=== PATIENT | female | born 1985 | race Caucasian/White ===

== ENCOUNTER 2023-10-18 11:11 | Outpatient (CLI) | payer BC ==
[2023-10-19 05:13] LABS: RPR Non Reactive (Non Reactive)
[2023-10-19 07:10] LABS: HBsAG SCREEN Negative (Negative); HCV AB Non Reactive (Non Reactive); HEPATITIS B SURFACE AB QUANT <3.1 mIU/mL (Immunity>9.9); HIV SCREEN 4TH GENERATION Non Reactive (Non Reactive)
[2023-10-19 09:09] LABS: VARICELLA-ZOSTER AB IGG 1478 index (Immune >165)
== END 2023-10-18 11:12 | disposition home or self-care (01) ==
LOC: LAB 11:11
PROVIDERS: ATTEND Nurse Practitioner Obstetrics & Gynecology
DX: Z31.69 Encounter for other general counseling and advice on procreation (principal)
CPT/HCPCS: 36415; 86317; 86592; 86762; 86787; 86803; 87340; 87389; 87491; 87591; 87661

== ENCOUNTER 2023-11-21 07:21 | Outpatient (CLI) | payer BC | END 2023-11-21 07:22 | disposition home or self-care (01) | LOC: LAB 07:21 | PROVIDERS: ATTEND Advanced Practice Midwife | DX: O36.80X0 Pregnancy with inconclusive fetal viability, not applicable or unspecified (principal) | CPT/HCPCS: 36415; 84702; 86900; 86901 ==

== ENCOUNTER 2023-11-23 10:01 | Outpatient (CLI) | payer BC | END 2023-11-23 10:02 | disposition home or self-care (01) | LOC: LAB 10:01 | PROVIDERS: ATTEND Advanced Practice Midwife | DX: O36.80X0 Pregnancy with inconclusive fetal viability, not applicable or unspecified (principal) | CPT/HCPCS: 36415; 84702 ==

== ENCOUNTER 2023-11-27 13:04 | Outpatient (CLI) | payer BC | END 2023-11-27 13:05 | disposition home or self-care (01) | LOC: LAB 13:04 | PROVIDERS: ATTEND Nurse Practitioner Obstetrics & Gynecology | DX: O36.80X0 Pregnancy with inconclusive fetal viability, not applicable or unspecified (principal) | CPT/HCPCS: 36415; 84702 ==

== ENCOUNTER 2024-03-13 11:39 | Outpatient (CLI) | payer BC | END 2024-03-13 11:40 | disposition home or self-care (01) | LOC: LAB 11:39 | PROVIDERS: ATTEND Nurse Practitioner Obstetrics & Gynecology | DX: Z31.69 Encounter for other general counseling and advice on procreation (principal) | CPT/HCPCS: 36415; 82166 ==

== ENCOUNTER 2025-04-06 21:50 | Inpatient (IN) ==
[2025-04-06] MEDS ORDERED: TERBUTALINE 1 MG/ML VIAL SUBQ PRN (21:59)
[2025-04-06] MEDS ORDERED: LABETALOL 20 MG/4 ML SYRINGE IVP PRN ×3 (21:59)
[2025-04-06] MEDS ORDERED: CARBOPROST TROMETHAMINE 250 MCG/ML VIAL IM PRN (21:59)
[2025-04-06] MEDS ORDERED: fentaNYL 100 MCG/2 ML VIAL IVP PRN (21:59)
[2025-04-06] MEDS ORDERED: METHYLERGONOVINE 0.2 MG/ML VIAL IM PRN (21:59)
[2025-04-06] MEDS ORDERED: OXYTOCIN 10 UNIT/ML VIAL IM PRN (21:59)
[2025-04-06] MEDS ORDERED: hydrALAZINE INJ 20 MG/ML VIAL IVP PRN (21:59)
[2025-04-06] MEDS ORDERED: OXYTOCIN/SODIUM CHLORIDE 500 ML IV PRN (21:59)
--- NOTE | 2025-04-06 23:50 | HISTORY & PHYSICAL EXAMINATION ---
Admit History Smoking Status: Never smoker HPI Current : Vital Signs Pulse Rate 90 04/06/25 22:18 Respiratory Rate 17 04/06/25 22:18 Blood Pressure 118/72 04/06/25 22:18 Meds/Allgy Home Medications Ambulatory Orders Medication Instructions Recorded Confirmed metoclopramide HCl 5 mg tablet 5 mg PO Q6H PRN nausea and 08/31/24 04/05/25 (Reglan) vomiting #30 tabs ondansetron 4 mg disintegrating 4 mg PO Q6H PRN nausea and 09/14/24 04/05/25 tablet vomiting #120 tabs promethazine 25 mg tablet 25 mg PO TID PRN nausea and 09/14/24 04/05/25 vomiting #10 tabs Allergies Allergies Allergy/AdvReac Type Severity Reaction Status Date / Time No Known Drug Allergies Allergy Verified 04/05/25 12:58 PFSH Active Problems All Active Problems (Updated 03/22/25 @ 16:52 by Cathryn Wilson [facility]) Iron deficiency anemia during (Acute) Supervision of elderly multigravida, unspecified trimester (Acute) Advanced maternal age during (Acute) Normal in multigravida in first trimester (Acute) Family History Family History (Updated 08/27/24 @ 12:09 by Anila Flood MA) Grandfather Diabetes Father High blood pressure Social History Social History Smoking Status: Never smoker Do you dip or chew tobacco?: No Patient requests smoking cessation consult: No Initiate information on smoking cessation: No Physical Abdominal Exam Vital Signs: Pulse Resp BP 90 17 118/72 04/06/25 22:18 04/06/25 22:18 04/06/25 22:18 Plan for Labor Plan For Labor I expect patient to be DC'd or transferred within 96 hours.: Yes Plan for Labor: Domi is a 39yo @ 39.0wks gestation who presents to [facility] for induction of labor at term gestation. Upon arrival cervical exam was deferred. She presented earlier this morning with concerns for vaginal leakage of clear fluid however thorough examination including ROM+ was negative. FHR Category I pattern at present. 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 She transferred back to [facility] at 35wks gestation. Her has remained uncomplicated with the exception of advanced maternal age. Her NIPT was negative. She will be admitted to [facility] for pre-induction cervical ripening. Her is hoping to be present for delivery however he deploys this evening at 2300. She is really hoping he will be able to briefly see the baby prior to his departure. 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 Family Hx:No family hx of chromosomal or genetic abnormalities; Alzheimer disease - PGF, MGF; Depression - Mother; Diabetes - Sister, MGF; Colon cancer - MGM; HTN - Father Allergies: NKDA Medications: PNV, Reglan LMP:07/08/2024 LIONEL by LMP: 04/14/2025 U/S: @ 6+2 weeks, LIONEL 04/20/2025 Final LIONEL: 04/14/2025 Pre- weight: 142 BMI: 28.6 Blood type: O NEGATIVE RHOGAM @ 28 WEEKSgiven 01/20/25 Antibody screen:negative CBC: PLT HCT HGB 11.8/34.4/291 (10/28/2024) Rubella:Immune VZV:immune HBsAg:NR HepC:NR RPR/AB-EIA:NR HIV:NR Flu: COVID: PAP:12/03/2024 NILM HPV- GC/CT: 09/10/2024- negative HSV: Negative Genetic Testing: FAS:11/23/2024 19+6 Placenta: right lateral and w/o previa Cord: 3VC CLAUDIA:wnl EFW: 314g, 50th%ile 50gm GCT:112 TDAP:01/20/25 Breast Pump:done 2nd antibody screen: 3rd trimester H/H PLT 10.8/32.5/250 (03/09/2025) 3rd trimester RPR RSV: received in [place] GBS:negative Physical exam: Normocephalic, atraumatic Heart RRR w/o M/G/R Lungs CTAB Abdomen gravid, soft, nontender EFW 3400g FHR baseline 140s, moderate variability, + accels, no decels Contractions palpate mild every 4-7 minutes with soft resting tone SVE deferred (this morning /-2, vertex with intact membranes Bilateral LE's trace edema Mood is good Assessment: 39yo @ 39.0wks gestation by LMP c/w 6wk U/S Advanced maternal age FHR Category I GBS negative Plan: Admit to [facility] for elective induction of labor at term gestation. Pre-induction cervical ripening with misoprostol 50mcg BC q 4hrs x 2 doses. Repeat SVE in 8hrs or sooner PRN. Considering initiation of pitocin following 2 doses of misoprostol. Continuous monitoring. Jacuzzi PRN. Nitrous oxide PRN. Epidural per maternal request. Anticipate
[2025-04-07] MEDS: SODIUM CHLORIDE FLUSH 0.9% 10 ML SYRINGE IVP PRN (00:01)
[2025-04-07] MEDS: SODIUM CHLORIDE FLUSH 0.9% 10 ML SYRINGE IVP SCH (00:01)
[2025-04-07 00:10] LABS: HCT - HEMATOCRIT 32.9 % (37.0-47.0); HGB - HEMOGLOBIN 10.3 g/dL (12.0-16.0); MEAN PLATELET VOLUME 10.5 fL (7.9-10.8); NRBC ABSOLUTE COUNT (AUTO) 0.00 x10^3/uL; NUCLEATED RED BLOOD CELLS AUTO 0.0 /100WBC; PLT - PLATELET COUNT 261 10^3/uL (130-450); RED CELL DISTRIBUTION WIDTH 15.1 % (12.0-15.0)
--- OUTSIDE RECORDS SUMMARY | 2025-04-07 00:10 | EXTERNAL MEDICAL SUMMARY RPT | Continuity of Care Document ---
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 (no reactio n) (no severity) Problems date description facility 2025-02-05 11:12 Encounter for superv ision of other normal , [facility] 2025-02-05 11:13 Encounter for superv ision of other normal , first trimester [facility] 2025-02-05 11:23 Encounter for superv ision of other normal , first trimester [facility] 2025-02-22 00:00 Supervision of other normal pre gnancy, antepartum [facility] 2025-03-24 16:03 Encounter for superv ision of other normal , first trimester [facility] 2025-03-24 16:04 Encounter for superv ision of other normal , first trimester [email or web address] 2025-03-30 07:43 Iron deficiency anemia, unspeci fied [facility] 2025-03-30 07:43 Anemia complicating , third trimester [facility] 2025-03-30 07:43 Anemia complicating , unspecified trimester [email or web address] 2025-03-30 07:43 35 weeks gestation [email or web address] 2025-04-01 10:35 Supervision of elderly multigra marti, third trimester [facility] Results/Labs test date facility value unit notes Result panel 1 Specimen collection (procedure) (no date) [facility] (missing) (missing) (missing) Result panel 2 Specimen collection (procedure) (no date) [facility] (missing) (missing) (missing) Result panel 3 RUPTURE OF MEMBRANES PLUS 2025-04-02 18:10 [facility] NEGATIVE (missing) (missing) Social History date description facility 2025-02-22 00:00 Never smoked tobacco (finding) [facility]
[2025-04-07 00:12] LABS: ALT ALANINE AMINOTRANSFERASE 9.0 IU/L (10-60); AST ASPARTATE AMINOTRANSFERASE 15.0 IU/L (10-42); BUN - BLOOD UREA NITROGEN 8.0 mg/dL (6-20); CARBON DIOXIDE - CO2 20.0 mmol/L (21-32); CREATININE 0.5 mg/dL (0.6-1.3); GFR - MDRD 138.0 (>89)
--- NOTE | 2025-04-07 10:48 | PROVIDER PROGRESS NOTE ---
Labor Progress Note Labor Progress Note Labor Progress Note/Additional Text: S: Walking the halls this morning in attempt to keep contractions going. She states she feels the contractions are gradually increasing in intensity. She is coping well. is supportive at the bedside. O: FHR baseline 150s, moderate variability, + accels, no decels Contractions palpate mild every 2-4 minutes with soft resting tone SVE 2/50/-3, posterior, vertex. S/p 2 doses 50mcg BC misoprostol A: 39yo @ 39.0wks gestation Early labor FHR Category I GBS negative P: Initiate pitocin for induction of labor with titration per protocol. Repeat SVE in 4 hours or sooner PRN. Consider cervical ripening balloon placement if minimal change at next SVE. Continuous monitoring. Jacuzzi PRN. Nitrous oxide PRN. Epidural per maternal request. Anticipate .
[2025-04-07] MEDS: OXYTOCIN/SODIUM CHLORIDE 500 ML IV SCH (11:00)
[2025-04-07] MEDS: LACTATED RINGERS 1,000 ML IV PRN (11:00)
--- NOTE | 2025-04-07 14:37 | PROVIDER PROGRESS NOTE ---
Labor Progress Note Labor Progress Note Labor Progress Note/Additional Text: S: Breathing through contractions. She is rating them 5/10 on a pain scale. When she sat up to go to the bathroom she noticed liquid running down her leg which she thought was amniotic fluid however when she looked more closely she noted denis blood and became alarmed. Feels better after our discussion and reassurance that her bleeding and well being is being closely monitored. supportive at the bedside. O: FHR baseline 150s, moderate variability, + accels, + decels Contractions palpate moderate every 2-4 minutes with soft resting tone SVE 4/60/-2, posterior. Vertex. AROM occurred at 1415 and was noted to be a small amount of clear fluid FAS reviewed and verified placenta right lateral without previa A: 39yo @ 39.0wks gestation Vaginal bleeding during labor Early labor FHR Category I GBS negative P: Type and crossmatched x 2 units on hold. Reviewed bleeding during labor with client integration manager physician. Continuous monitoring. Restart pitocin 30 min after AROM if contractions decrease in frequency and t itrate per protocol. Repeat SVE 2 hours after initiation of pitocin. Jacuzzi PRN. Nitrous oxide PRN. Epidural per maternal request. Anticipate .
[2025-04-07] MEDS: LACTATED RINGERS 500 ML IV ONE (15:01)
[2025-04-07] MEDS ORDERED: ROPIVACAINE 0.2% 200 MG/100 ML BAG EP ONE (16:19)
[2025-04-07] MEDS ORDERED: ONDANSETRON 4 MG/2 ML VIAL IVP PRN (16:56)
[2025-04-07] MEDS ORDERED: METOCLOPRAMIDE 10 MG/2 ML VIAL IVP PRN (16:56)
[2025-04-07] MEDS ORDERED: NALBUPHINE 10 MG/ML AMP IVP PRN (16:56)
[2025-04-07] MEDS ORDERED: ROPIVACAINE 0.2% 200 MG/100 ML BAG EP PRN (16:56)
[2025-04-07] MEDS ORDERED: NALOXONE 0.4 MG/ML VIAL IVP PRN (16:56)
[2025-04-07] MEDS ORDERED: ePHEDrine 50 MG/ML VIAL IVP PRN (16:56)
--- NOTE | 2025-04-07 16:59 | ANESTHESIA PROCEDURE NOTE ---
Pre-Anesthesia VS, & Labs Diagnosis Surgical Diagnosis:: labor induction Procedure Procedure: epidural Vitals Vital Signs: Pulse Resp BP 90 17 118/72 04/06/25 22:18 04/06/25 22:18 04/06/25 22:18 NPO NPO: Other Is Patient ?: Yes Lab Results Current Lab Results: Laboratory Tests 04/06/25 23:15: WBC 8.5, RBC 3.86 L, Hgb 10.3 L, Hct 32.9 L, MCV 85.2, MCH 26.7 L, MCHC 31.3 L, RDW 15.1 H, Plt Count 261, MPV 10.5, Neut # (Auto) 5.5, Lymph # (Auto) 1.9, [place] # (Auto) 0.9, Eos # (Auto) 0.1, Baso # (Auto) 0.0, Absolute Nucleated RBC 0.00, Nucleated RBC % 0.0, Sodium 135, Potassium 3.4 L, Chloride 106, Carbon Dioxide 20 L, Anion Gap 9.0, BUN 8, Creatinine 0.5 L, Estimated GFR (MDRD) 138, Glucose 95, Calcium 9.3, Total Bilirubin 0.4, AST 15, ALT 9 L, Alkaline Phosphatase 109, Total Protein 6.2 L, Albumin 3.5, Globulin 2.7, Albumin/Globulin Ratio 1.3, Blood Type O NEGATIVE, Antibody Screen NEGATIVE, Crossmatch IS Only See Detail 04/06/25 23:15 04/06/25 23:15 Meds/Allgy Home Medications Ambulatory Orders Medication Instructions Recorded Confirmed metoclopramide HCl 5 mg tablet 5 mg PO Q6H PRN nausea and 08/31/24 04/05/25 (Reglan) vomiting #30 tabs ondansetron 4 mg disintegrating 4 mg PO Q6H PRN nausea and 09/14/24 04/05/25 tablet vomiting #120 tabs promethazine 25 mg tablet 25 mg PO TID PRN nausea and 09/14/24 04/05/25 vomiting #10 tabs Allergies Allergies Allergy/AdvReac Type Severity Reaction Status Date / Time No Known Drug Allergies Allergy Verified 04/07/25 09:17 PFSH Active Problems All Active Problems (Updated 03/22/25 @ 16:52 by Cathryn Wilson DO ALL OPERATOR) Iron deficiency anemia during (Acute) Supervision of elderly multigravida, unspecified trimester (Acute) Advanced maternal age during (Acute) Normal in multigravida in first trimester (Acute) Family History Family History (Updated 08/27/24 @ 12:09 by Anila Flood MA) Grandfather Diabetes Father High blood pressure Social History Social History Smoking Status: Never smoker Do you dip or chew tobacco?: No Patient requests smoking cessation consult: No Initiate information on smoking cessation: No Anesthesia Exam (Expanded) Exam General: Alert, Oriented x3, Cooperative and Moderate distress Dental: WNL Mouth Opening: Greater than 4 Fingerbreadths Neck Mobility: Normal Mallampati classification: II Thyromental Distance: greater than 6 cm Respiratory: Lungs clear Cardiovascular: Regular rate Plan Plan Anesthesia Type: Epidural Consent for Procedure(s) Verified and Reviewed: Yes Code Status: Attempt Resuscitation ASA Classification ASA classification: 2-Mild systemic disease Is this case an emergency?: No
[2025-04-07] MEDS ORDERED: SIMETHICONE CHEW 80 MG TABLET PO PRN (17:53)
[2025-04-07] MEDS ORDERED: WITCH HAZEL/GLYCERIN 1 PAD TOP PRN (17:53)
[2025-04-07] MEDS ORDERED: HYDROCORTISONE 1% CREAM 28 GM TUBE TOP PRN (17:53)
[2025-04-07] MEDS ORDERED: OXYTOCIN/SODIUM CHLORIDE 500 ML IV PRN (17:53)
--- NOTE | 2025-04-07 18:00 | DELIVERY NOTE ---
Delivery Note Delivery Outcome Delivery Date: 04/07/25 Delivery Comments (Free Text/Narrative) Delivery Comments (Free Text/Narrative): Labor: This 39yo @ 39.0 wks gestation by LMP c/w 6.2wks U/S presented to [facility] for induction of labor at term gestation. Cervix was 2/50/-3 and vertex with intact membranes. She received 2 doses of 50mcg BC misoprostol for pre- induction cervical ripening. Pitocin was initiated for induction of labor with a maximum infusion rate of 4mU/min. FHR demonstrated Category I pattern throughout labor. Normal labor course. AROM occurred @ 1415 and was noted to be a moderate amount of clear fluid. Epidural placed per maternal request. She progressed to c/c/+1 at 1731. : Normal SVB of viable female infant on 04/07/2025 @ 1734. Nucal cord x 2 was reduced. The was placed on maternal abdomen, stimulated, dried, and placed skin to skin. 's were 8/9 at 1 and 5 min respectively. Pitocin administered via IV for hemostasis. The umbilical cord was allowed to stop pulsating at which time it was doubly clamped by CNM and cut by FOB. Cord blood was obtained. 3VC. Fundal massage and gentle cord traction applied for active management of the third stage. Placenta delivered spontaneously and intact at 1741. QBL 414mL. Fourth stage: Uterine fundus firm and there is no excessive bleeding. The perineum, vagina, and cervix were inspected and found to be intact. Tissues well approximated. initiated. Family bonding well. Both mother and baby were left in stable condition.
[2025-04-07] MEDS: TRANEXAMIC ACID IN NACL 1,000 MG/100 ML BAG IV PRN (18:03)
[2025-04-07] MEDS: ACETAMINOPHEN 500 MG TABLET PO PRN (19:36)
[2025-04-07] MEDS: IBUPROFEN 800 MG TABLET PO PRN (19:37)
--- NOTE | 2025-04-07 22:32 | PROVIDER PROGRESS NOTE ---
Subjective Subjective Subjective: RN phones with reported elevated temperate. Due to recent administration of 600mcg BC misoprostol it was initially assumed that the mild temperature increase was a side effect of medication. However patients temperature continued to rise despite administration of Tylenol PO 1000mg. A new thermometer was used and temperature appeared to decrease however shortly thereafter I was contacted by the RN assigned to the patient again with concerns for another elevated temperature. All other vital signs remain stable. No evidence of hypotension, tachycardia, or uterine tenderness noted. Pt is experiencing some mild shivering however she denies feeling cold, body aches, or chills. Denies lightheadedness or dizziness. Uterine bleeding WNL. Suspected chorioamnionitis however patient does not have significant risk factors given her short labor duration and rupture of membranes x 3 hours only. Assessment: 39yo @ 5 hours s/p TSVD viable female infant fever/chorioamnionitis Plan: CBC ordered -results pending Gentamycin 5mg/kg x once Ampicillin 2mg IV q 6 hrs x 24 hours mail caller physician notified and agrees with plan to proceed with treatment with IV antibiotics. Current Medications Current Medications Current Medications: Current Medications Generic Name Dose Route Start Last Admin Trade Name Freq PRN Reason Stop Dose Admin Acetaminophen 1,000 mg 04/07/25 17:53 04/07/25 19:36 Acetaminophen 500 Mg Tablet PO 1,000 mg Q8HR PRN Administration Mild Pain or Fever>38C(100.4F) Carboprost Tromethamine 250 mcg 04/06/25 21:59 Carboprost Tromethamine 250 Mcg/Ml Vial IM .ONCE PRN Hemorrhage Diphenhydramine HCl 12.5 - 25 mg 04/07/25 16:56 Diphenhydramine Inj 50 Mg/Ml Vial IVP Q6HR PRN ITCHING Docusate Sodium 100 mg 04/07/25 21:00 Docusate Sodium 100 Mg Capsule PO BID ESTHER Ephedrine Sulfate 5 mg 04/07/25 16:56 Ephedrine 50 Mg/Ml Vial IVP Q5M PRN For SBP<100;give until SBP>100 Fentanyl 50 mcg 04/06/25 21:59 Fentanyl 100 Mcg/2 Ml Vial IVP Q1H PRN Severe Pain (score 7-10) Hydralazine HCl 5 - 10 mg 04/06/25 21:59 Hydralazine Inj 20 Mg/Ml Vial IVP Q20M PRN SBP> or= 160 OR DBP> or= 110 Protocol Hydrocortisone 1 applic 04/07/25 17:53 Hydrocortisone 1% Cream 28 Gm Tube TOP QID PRN PERINEAL REPAIR Lactated Ringer's 500 mls @ 999 mls/hr 04/06/25 21:59 04/07/25 13:48 Lr IV Infused PRN PRN Infusion Per Policy Oxytocin/Sodium Chloride 500 mls @ 999 mls/hr 04/06/25 21:59 Pitocin/Sodium Chloride IV PRN PRN POST- HEMORR PREVENTION Protocol 999 MILLIUNIT/MIN Tranexamic Acid 1,000 mg in 100 mls @ 600 mls/hr 04/06/25 21:59 04/07/25 18:15 Tranexamic 1,000 Mg/100ml-Nacl IV Infused Q30M PRN Infusion EBL >1200mL and within 3hr Oxytocin/Sodium Chloride 500 mls @ 2 mls/hr 04/07/25 11:00 04/07/25 19:11 Pitocin/Sodium Chloride IV 999 milliunit/min TITR ESTHER 999 mls/hr Protocol Administration 2 MILLIUNIT/MIN Ropivacaine 200 mg in 100 mls @ 0 mls/hr 04/07/25 16:56 Naropin 0.2% EP PRN PRN PAIN Protocol Per Protocol Oxytocin/Sodium Chloride 500 mls @ 999 mls/hr 04/07/25 17:53 Pitocin/Sodium Chloride IV PRN PRN POST- HEMORR PREVENTION Protocol 999 MILLIUNIT/MIN Gentamicin Sulfate 381.02 mg/ 109.5255 mls @ 100 mls/hr 04/07/25 22:11 Sodium Chloride IV 04/07/25 23:10 ONCE ONE Ampicillin Sodium 2 gm/ Sodium 100 mls @ 100 mls/hr 04/07/25 22:20 Chloride IV 04/08/25 22:20 Q6HR ESTHER Ibuprofen 800 mg 04/07/25 17:53 04/07/25 19:37 Ibuprofen 800 Mg Tablet PO 800 mg Q8HR PRN Administration Moderate Pain (Level 4-6) Labetalol HCl 20 - 80 mg 04/06/25 21:59 Labetalol 20 Mg/4 Ml Syringe IVP Q10M PRN SBP> or= 160 OR DBP> or= 110 Protocol Labetalol HCl 20 mg 04/06/25 21:59 Labetalol 20 Mg/4 Ml Syringe IVP .ONCE PRN SBP> or= 160 OR DBP> or= 110 Protocol Labetalol HCl 20 - 40 mg 04/06/25 21:59 Labetalol 20 Mg/4 Ml Syringe IVP Q10M PRN SBP> or= 160 OR DBP> or= 110 Protocol Lidocaine HCl 20 ml 04/06/25 21:59 Lidocaine 1% 20 Ml Mdv ID 04/09/25 21:59 .ONCE PRN PERINEAL REPAIR Methylergonovine Maleate 0.2 mg 04/06/25 21:59 Methylergonovine 0.2 Mg/Ml Vial IM .ONCE PRN Hemorrhage Metoclopramide HCl 10 mg 04/07/25 16:56 Metoclopramide 10 Mg/2 Ml Vial IVP Q6HR PRN Nausea / Vomiting Misoprostol 800 mcg 04/06/25 21:59 Misoprostol 200 Mcg Tablet VT .ONCE PRN Hemorrhage Nalbuphine HCl 2.5 - 5 mg 04/07/25 16:56 Nalbuphine 10 Mg/Ml Amp IVP Q4H PRN ITCHING Naloxone HCl 0.1 mg 04/07/25 16:56 Naloxone 0.4 Mg/Ml Vial IVP Q2M PRN RR<8 Nifedipine 10 - 20 mg 04/06/25 21:59 Nifedipine 10 Mg Capsule PO Q20M PRN SBP> or= 160 OR DBP> or= 110 Protocol Ondansetron HCl 4 mg 04/07/25 16:56 Ondansetron 4 Mg/2 Ml Vial IVP Q6HR PRN Nausea / Vomiting Oxytocin 10 unit 04/06/25 21:59 Oxytocin 10 Unit/Ml Vial IM .ONCE PRN Step One if no IV access. Simethicone 80 mg 04/07/25 17:53 Simethicone Chew 80 Mg Tablet PO TID PRN Gas Sodium Chloride 10 ml 04/06/25 21:59 04/07/25 00:01 Sodium Chloride Flush 0.9% 10 Ml Syringe IVP 10 ml PRN PRN Administration NEEDED PER PROVIDER ORDERS Sodium Chloride 10 ml 04/06/25 23:00 04/07/25 09:00 Sodium Chloride Flush 0.9% 10 Ml Syringe IVP 10 ml Q8H ESTHER Administration Terbutaline Sulfate 0.25 mg 04/06/25 21:59 Terbutaline 1 Mg/Ml Vial SUBQ .ONCE PRN Tachystole Witch Mary/Glycerin 1 pad 04/07/25 17:53 Witch Mary/Glycerin 1 Pad TOP PRN PRN PERINEAL REPAIR Objective Vital Signs/Intake & Output Intake & Output: Intake & Output 04/04/25 04/05/25 04/06/25 04/07/25 23:59 23:59 23:59 23:59 Intake Total 1600 / 1600 Output Total 400 / 400 Balance 1200 / 1200 Weight (kg) 168 lb Lab Results 04/06/25 23:15 04/06/25 23:15 Other Labs: Lab Results x24hrs 04/06/25 Range/Units 23:15 WBC 8.5 (4.8-10.8) x10^3/uL RBC 3.86 L (4.20-5.40) 10^6/uL Hgb 10.3 L (12.0-16.0) g/dL Hct 32.9 L (37.0-47.0) % MCV 85.2 (81.0-99.0) fL MCH 26.7 L (27.0-31.0) pg MCHC 31.3 L (32.0-36.0) g/dL RDW 15.1 H (12.0-15.0) % Plt Count 261 (130-450) 10^3/uL MPV 10.5 (7.9-10.8) fL Neut # (Auto) 5.5 (1.5-6.6) 10^3/uL Lymph # (Auto) 1.9 (1.5-3.5) 10^3/uL [place] # (Auto) 0.9 (0.0-1.0) 10^3/uL Eos # (Auto) 0.1 (0.0-0.7) 10^3/uL Baso # (Auto) 0.0 (0.0-0.1) 10^3/uL Absolute Nucleated RBC 0.00 x10^3/uL Nucleated RBC % 0.0 /100WBC Sodium 135 (135-145) mmol/L Potassium 3.4 L (3.5-4.5) mmol/L Chloride 106 (101-111) mmol/L Carbon Dioxide 20 L (21-32) mmol/L Anion Gap 9.0 (6-13) BUN 8 (6-20) mg/dL Creatinine 0.5 L (0.6-1.3) mg/dL Estimated GFR (MDRD) 138 (>89) Glucose 95 (74-104) mg/dL Calcium 9.3 (8.5-10.3) mg/dL Total Bilirubin 0.4 (0.2-1.0) mg/dL AST 15 (10-42) IU/L ALT 9 L (10-60) IU/L Alkaline Phosphatase 109 (42-121) IU/L Total Protein 6.2 L (6.4-8.9) g/dL Albumin 3.5 (3.2-5.5) g/dL Globulin 2.7 (2.1-4.2) g/dL Albumin/Globulin Ratio 1.3 (1.0-2.2) Blood Type O NEGATIVE Antibody Screen NEGATIVE Crossmatch IS Only See Detail
[2025-04-07 22:34] LABS: HCT - HEMATOCRIT 32.8 % (37.0-47.0); HGB - HEMOGLOBIN 10.4 g/dL (12.0-16.0); MEAN PLATELET VOLUME 10.1 fL (7.9-10.8); NRBC ABSOLUTE COUNT (AUTO) 0.00 x10^3/uL; NUCLEATED RED BLOOD CELLS AUTO 0.0 /100WBC; PLT - PLATELET COUNT 245 10^3/uL (130-450); RED CELL DISTRIBUTION WIDTH 15.3 % (12.0-15.0)
[2025-04-07] MEDS ORDERED: GENTAMICIN 80 MG/2 ML VIAL ONE (23:53)
[2025-04-08] MEDS ORDERED: SODIUM CHLORIDE 0.9% IV ONE ×2 (01:00→01:30)
[2025-04-08] MEDS ORDERED: GENTAMICIN IV ONE ×2 (01:00→01:30)
[2025-04-08] MEDS ORDERED: SODIUM CHLORIDE 0.9% 100ML 100 ML IV ONE (01:08)
[2025-04-08] MEDS ORDERED: GENTAMICIN 80 MG/2 ML VIAL ONE (01:27)
[2025-04-08] MEDS: GENTAMICIN IV ONE (01:42)
[2025-04-08] MEDS: SODIUM CHLORIDE 0.9% IV ONE (01:42)
[2025-04-08] MEDS: DOCUSATE SODIUM 100 MG CAPSULE PO SCH (01:59)
--- NOTE | 2025-04-08 07:02 | PROVIDER PROGRESS NOTE ---
Subjective Prog Note Date Prog Note Date: 04/08/25 Prog Note Time: 06:30 Subjective Pt reports feeling: Improved Subjective: 39yo s/p on 04/07/2025. @ 1734. QBL 414. Increased bleeding and medication management given including misoprostol. Febrile the hours following administration. 24 hours of antibiotics initiated. Will continue for full 24 hours then stop. FF 2 FB above U. Scant bleeding. No abdominal pain. No further febrile events. Feels overall well. Will repeat CBC (resulted prior to closure of note WBC 10.4, HGB 8.7, HCT 27.6). 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 Okay to stay overnight tonight. Will plan to discharge home tomorrow. Current Medications Current Medications Current Medications: Current Medications Generic Name Dose Route Start Last Admin Trade Name Freq PRN Reason Stop Dose Admin Acetaminophen 1,000 mg 04/07/25 17:53 04/07/25 19:36 Acetaminophen 500 Mg Tablet PO 1,000 mg Q8HR PRN Administration Mild Pain or Fever>38C(100.4F) Carboprost Tromethamine 250 mcg 04/06/25 21:59 Carboprost Tromethamine 250 Mcg/Ml Vial IM .ONCE PRN Hemorrhage Diphenhydramine HCl 12.5 - 25 mg 04/07/25 16:56 Diphenhydramine Inj 50 Mg/Ml Vial IVP Q6HR PRN ITCHING Docusate Sodium 100 mg 04/07/25 21:00 04/08/25 01:59 Docusate Sodium 100 Mg Capsule PO Not Given BID ESTHER Ephedrine Sulfate 5 mg 04/07/25 16:56 Ephedrine 50 Mg/Ml Vial IVP Q5M PRN For SBP<100;give until SBP>100 Fentanyl 50 mcg 04/06/25 21:59 Fentanyl 100 Mcg/2 Ml Vial IVP Q1H PRN Severe Pain (score 7-10) Hydralazine HCl 5 - 10 mg 04/06/25 21:59 Hydralazine Inj 20 Mg/Ml Vial IVP Q20M PRN SBP> or= 160 OR DBP> or= 110 Protocol Hydrocortisone 1 applic 04/07/25 17:53 Hydrocortisone 1% Cream 28 Gm Tube TOP QID PRN PERINEAL REPAIR Lactated Ringer's 500 mls @ 999 mls/hr 04/06/25 21:59 04/07/25 13:48 Lr IV Infused PRN PRN Infusion Per Policy Oxytocin/Sodium Chloride 500 mls @ 999 mls/hr 04/06/25 21:59 Pitocin/Sodium Chloride IV PRN PRN POST- HEMORR PREVENTION Protocol 999 MILLIUNIT/MIN Tranexamic Acid 1,000 mg in 100 mls @ 600 mls/hr 04/06/25 21:59 04/07/25 18:15 Tranexamic 1,000 Mg/100ml-Nacl IV Infused Q30M PRN Infusion EBL >1200mL and within 3hr Oxytocin/Sodium Chloride 500 mls @ 2 mls/hr 04/07/25 11:00 04/07/25 19:11 Pitocin/Sodium Chloride IV 999 milliunit/min TITR ESTHER 999 mls/hr Protocol Administration 2 MILLIUNIT/MIN Ropivacaine 200 mg in 100 mls @ 0 mls/hr 04/07/25 16:56 Naropin 0.2% EP PRN PRN PAIN Protocol Per Protocol Oxytocin/Sodium Chloride 500 mls @ 999 mls/hr 04/07/25 17:53 Pitocin/Sodium Chloride IV PRN PRN POST- HEMORR PREVENTION Protocol 999 MILLIUNIT/MIN Ampicillin Sodium 2 gm/ Sodium 100 mls @ 100 mls/hr 04/07/25 22:30 04/08/25 06:21 Chloride IV 100 mls/hr Q6H ESTHER Administration Ibuprofen 800 mg 04/07/25 17:53 04/07/25 19:37 Ibuprofen 800 Mg Tablet PO 800 mg Q8HR PRN Administration Moderate Pain (Level 4-6) Labetalol HCl 20 - 80 mg 04/06/25 21:59 Labetalol 20 Mg/4 Ml Syringe IVP Q10M PRN SBP> or= 160 OR DBP> or= 110 Protocol Labetalol HCl 20 mg 04/06/25 21:59 Labetalol 20 Mg/4 Ml Syringe IVP .ONCE PRN SBP> or= 160 OR DBP> or= 110 Protocol Labetalol HCl 20 - 40 mg 04/06/25 21:59 Labetalol 20 Mg/4 Ml Syringe IVP Q10M PRN SBP> or= 160 OR DBP> or= 110 Protocol Lidocaine HCl 20 ml 04/06/25 21:59 Lidocaine 1% 20 Ml Mdv ID 04/09/25 21:59 .ONCE PRN PERINEAL REPAIR Methylergonovine Maleate 0.2 mg 04/06/25 21:59 Methylergonovine 0.2 Mg/Ml Vial IM .ONCE PRN Hemorrhage Metoclopramide HCl 10 mg 04/07/25 16:56 Metoclopramide 10 Mg/2 Ml Vial IVP Q6HR PRN Nausea / Vomiting Misoprostol 800 mcg 04/06/25 21:59 Misoprostol 200 Mcg Tablet CA .ONCE PRN Hemorrhage Nalbuphine HCl 2.5 - 5 mg 04/07/25 16:56 Nalbuphine 10 Mg/Ml Amp IVP Q4H PRN ITCHING Naloxone HCl 0.1 mg 04/07/25 16:56 Naloxone 0.4 Mg/Ml Vial IVP Q2M PRN RR<8 Nifedipine 10 - 20 mg 04/06/25 21:59 Nifedipine 10 Mg Capsule PO Q20M PRN SBP> or= 160 OR DBP> or= 110 Protocol Ondansetron HCl 4 mg 04/07/25 16:56 Ondansetron 4 Mg/2 Ml Vial IVP Q6HR PRN Nausea / Vomiting Oxytocin 10 unit 04/06/25 21:59 Oxytocin 10 Unit/Ml Vial IM .ONCE PRN Step One if no IV access. Simethicone 80 mg 04/07/25 17:53 Simethicone Chew 80 Mg Tablet PO TID PRN Gas Sodium Chloride 10 ml 04/06/25 21:59 04/07/25 00:01 Sodium Chloride Flush 0.9% 10 Ml Syringe IVP 10 ml PRN PRN Administration NEEDED PER PROVIDER ORDERS Sodium Chloride 10 ml 04/06/25 23:00 04/07/25 09:00 Sodium Chloride Flush 0.9% 10 Ml Syringe IVP 10 ml Q8H ESTHER Administration Terbutaline Sulfate 0.25 mg 04/06/25 21:59 Terbutaline 1 Mg/Ml Vial SUBQ .ONCE PRN Tachystole Witch Mary/Glycerin 1 pad 04/07/25 17:53 Witch Mary/Glycerin 1 Pad TOP PRN PRN PERINEAL REPAIR Objective Vital Signs/Intake & Output Vital Signs: Vital Signs x48h Temp Pulse Resp BP 04/08/25 05:15 36.9 C 67 17 98/46 L 04/08/25 01:00 37 C 86 18 130/58 L Intake & Output: Intake & Output 04/05/25 04/06/25 04/07/25 04/08/25 23:59 23:59 23:59 23:59 Intake Total 1600 / 3163 505.1808 / 209.5255 Output Total 900 / 900 Balance 700 / 823 894.8855 / 209.5255 Weight (kg) 168 lb Lab Results 04/08/25 09:56 04/06/25 23:15 Other Labs: Lab Results x24hrs 04/07/25 04/06/25 Range/Units 22:21 23:15 WBC 14.6 H (4.8-10.8) x10^3/uL RBC 3.82 L (4.20-5.40) 10^6/uL Hgb 10.4 L (12.0-16.0) g/dL Hct 32.8 L (37.0-47.0) % MCV 85.9 (81.0-99.0) fL MCH 27.2 (27.0-31.0) pg MCHC 31.7 L (32.0-36.0) g/dL RDW 15.3 H (12.0-15.0) % Plt Count 245 (130-450) 10^3/uL MPV 10.1 (7.9-10.8) fL Neut # (Auto) 12.7 H (1.5-6.6) 10^3/uL Lymph # (Auto) 1.1 L (1.5-3.5) 10^3/uL [place] # (Auto) 0.8 (0.0-1.0) 10^3/uL Eos # (Auto) 0.0 (0.0-0.7) 10^3/uL Baso # (Auto) 0.0 (0.0-0.1) 10^3/uL Absolute Nucleated RBC 0.00 x10^3/uL Nucleated RBC % 0.0 /100WBC Blood Type O NEGATIVE Antibody Screen NEGATIVE Crossmatch IS Only See Detail
[2025-04-08 10:05] LABS: HCT - HEMATOCRIT 27.6 % (37.0-47.0); HGB - HEMOGLOBIN 8.7 g/dL (12.0-16.0); MEAN PLATELET VOLUME 10.2 fL (7.9-10.8); NRBC ABSOLUTE COUNT (AUTO) 0.00 x10^3/uL; NUCLEATED RED BLOOD CELLS AUTO 0.0 /100WBC; PLT - PLATELET COUNT 230 10^3/uL (130-450); RED CELL DISTRIBUTION WIDTH 15.4 % (12.0-15.0)
--- NOTE | 2025-04-08 11:55 | PHARMACY PROGRESS NOTE ---
Best Possible Medication History Admit Date and Time: 04/06/25 2159 Home Medications Medication Instructions Recorded Confirmed Type acetaminophen 500 mg tablet 1,000 mg PO Q6H PRN fever or pain 04/08/25 04/08/25 History (Tylenol Extra Strength) ferrous gluconate 324 mg (37.5 mg 324 mg PO DAILY 03/2904/08/25 History iron) tablet vits no.126-ferrous fum 1 tab PO DAILY 04/08/25 History 28 mg iron-folic acid 800 mcg tablet (Classic ) Processed by: Pharmacy Medications reviewed in ED?: No Medication History completed: Yes Patient Interview: Completed [facility] Statement: As the person ultimately responsible for medication therapy, providers are able to order a medication from an existing home medication list in [facility] via the "Reconcile Routine" prior to Confirmation of that medication by customer support representative. Such practice is discouraged except when the physician, in their clinical judgment, deems that a medical need exists for a medication without regard to previous use.
[2025-04-08] MEDS: AMPICILLIN 2 GM in SODIUM CHLORIDE 0.9% MINIBAG 100 ML IV SCH ×2 (18:32)
[2025-04-09 08:19] VITALS: TEMP 97.9; O2SAT 98
--- NOTE | 2025-04-09 08:35 | Discharge Summary ---
Discharge Summary HPI History of Present Illness: Date of Admission: Date of Discharge: 04/09/2025 39yo @ 39.0wks gestation by LMP c/w 6wk U/S Advanced maternal age FHR Category I GBS negative Physical exam: Normocephalic, atraumatic No increased work of breathing Uterine involution, FF above umbilicus but firm and decreasing with minimal bleeding. scant rubra bleeding minimal perineal discomfort. Bilateral LE's trace edema Mood is good. 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 She transferred back to [facility] at 35wks gestation. Her has remained uncomplicated with the exception of advanced maternal age. l SVB of viable female infant on 04/07/2025 @ 1734. Nucal cord x 2 was reduced. The was placed on maternal abdomen, stimulated, dried, and placed skin to skin. 's were 8/9 at 1 and 5 min respectively. Pitocin administered via IV for hemostasis. The umbilical cord was allowed to stop pulsating at which time it was doubly clamped by CNM and cut by FOB. Cord blood was obtained. 3VC. Fundal massage and gentle cord traction applied for active management of the third stage. Placenta delivered spontaneously and intact at 1741. QBL 414mL. She received hemorrhage management including misoprostol, pitocin and TXA (resolving the increased bleeding) and following had a significant febrile episode that warranted 24 hours of antibiotic therapy. She had no further febrile episodes. She has otherwise had a normal course. She is ambulating and tolerating a regular diet. She is urinating without difficulty and her lochia is normal. Uterine fundus firm but persistently above U with minimal vaginal bleeding. Her pain is well controlled without narcotic management. She will be discharged to home today on day 2 and encouraged IBU, tylenol and stool softeners PRN. She intends to follow up with [facility] in 1 week for telehealth 04/13/2025 @ 1630. She has been given precautions to call if she has any new or worsening sx such as fevers, chills, abdominal pain, increasing bleeding, or foul smelling vaginal lochia. preeclamptic precautions reviewed as well. VZV: immune Rubella: immune RH: NEGATIVE, baby girl blood type O NEGATIVE. Rhogam NOT indicated. ALLERGIES Allergies Allergy/AdvReac Type Severity Reaction Status Date / Time No Known Drug Allergies Allergy Verified 04/07/25 09:17 MEDICATIONS Ambulatory Orders Medication Instructions Recorded Confirmed acetaminophen 500 mg tablet 1,000 mg PO Q6H PRN fever or pain 04/08/25 04/08/25 (Tylenol Extra Strength) ferrous gluconate 324 mg (37.5 mg 324 mg PO DAILY 03/2904/08/25 iron) tablet vits no.126-ferrous fum 1 tab PO DAILY 04/08/25 28 mg iron-folic acid 800 mcg tablet (Classic ) PHYSICAL EXAM AT DISCHARGE Vital Signs: Vital Signs x48h Temp Pulse Resp BP Pulse Ox 04/09/25 08:18 36.6 C 71 16 120/63 98 LABS 04/08/25 09:56 04/06/25 23:15 Discharge Plan Discharge Patient Disposition: 01 Home, Self Care Medically Cleared Date:: 04/09/25 Prescriptions: Continued Classic 28 mg iron- 800 mcg tablet 1 tab PO DAILY acetaminophen [Tylenol Extra Strength] 500 mg tablet 1,000 mg PO Q6H PRN (Reason: fever or pain) Patient Comments: PT STATED SHE DID NOT TAKE OFTEN, OR WITH REGULARITY, JUST ASN ferrous gluconate 324 mg (37.5 mg iron) tablet 324 mg PO DAILY Print Language: Lithuanian Patient Instructions: After a Vaginal
[2025-04-09 11:37] VITALS: BP 120/70
--- NOTE | 2025-04-09 13:24 | Labor Flowsheet ---
Labor Flowsheet Datetime Report Generated by CPN: 04/09/2025 13:24 Datetime: 04/09/2025 11:35 VITAL SIGNS NBP Sys/Yola/Mean (mmHg): 120 : 70 : 81 Pulse: 83 SpO2 (%): 97 Datetime: 04/08/2025 01:30 Temperature (C): 37.1 Temperature Route: Oral Datetime: 04/07/2025 18:30 Respirations: 14 Datetime: 04/07/2025 17:41 Patient Care Comments: placenta Datetime: 04/07/2025 17:40 LaborFlag: Labor Datetime: 04/07/2025 17:31 VAGINAL EXAM Dilatation (cm): 10.0 Effacement (%): 100 Exam by: A.Marcelo. CNM Datetime: 04/07/2025 17:26 Medication Comments: LR @ 75 Datetime: 04/07/2025 17:15 UTERINE ACTIVITY Monitor Mode: External Frequency (min): 2-3 Duration (sec): 70-90 ASSESSMENT A Monitor Mode: Hog Counter Interventions for FHR: Ultrasound Adjusted FHR Baseline Rate : 155 Comments: Broken FHT d/t maternal position. Unable to determine decel. Datetime: 04/07/2025 17:06 Patient Position/Activity: Right Lateral Datetime: 04/07/2025 17:00 Stage of : Labor Pitocin Checklist: At Least 1 Acceleration of 15 bpm x 15 Seconds in 30 Minutes or Adequate Variability; No More than 1 Late Deceleration Occurred in Past 30 Minutes; No More than 2 Variable Decelerations > 60 Seconds in Duration and decreasing >60 bpm in 30 minutes; No More than 5 Uterine Contractions in 10 Minutes for any 20 Minute Interval; Uterus Palpates Soft between Contractions Variability: Moderate 6-25 bpm Accelerations: 15X15 Decelerations: None Category: Category I PAIN Pain Scale: 5 Pain Presence: Constant Pain Type: Pressure Datetime: 04/07/2025 16:44 Pain Coping: Breathing Through Contractions Datetime: 04/07/2025 16:41 Epidural Procedure: Loading Dose Datetime: 04/07/2025 16:29 Monitor Interventions for UA: Gandy Adjusted Datetime: 04/07/2025 16:22 PROCEDURE TIME OUT Procedure Verify: Correct Patient Identity; Correct Side and Site are Marked; Accurate Procedure Consent Form; Agreement on Procedure to be Done; Correct Patient Position; Relevant Images and Results are Properly Labeled and Displayed; Addressed Need to Administer Antibiotics or Fluids for Irrigation; Safety Precautions Based on Patient History or Medication Use Epidural Positioning: Sitting Datetime: 04/07/2025 16:16 Station: -1 Vaginal Exam Comments: per pt request Anesthesia Comments: pt requesting epidural. M.Aube, DIRECTOR GLOBAL DEVELOPMENT notified Datetime: 04/07/2025 15:58 I/O Interventions: Up to BR Datetime: 04/07/2025 15:40 MEDICATIONS Pitocin (milliunits): Increased to @ 4 Datetime: 04/07/2025 15:39 Pain Assessment Comments: pt in bed with nitrious oxide. Pt eduated on nitrious oxide use. Pt verbalizes understanding. Datetime: 04/07/2025 14:46 Contraction Comments: unable to determine d/t maternal positon. TOCO adjusted Datetime: 04/07/2025 14:15 Membrane Status: Ruptured Membranes Rupture Method: Artificial Amniotic Fluid Color: Clear Amniotic Fluid Amount: Small Datetime: 04/07/2025 13:30 Pattern: Normal: <= 5 Contractions in 10 Minutes Datetime: 04/07/2025 13:27 Communication Comments: A.Marcelo, CNM notifed of bleeding. VO for RN to perform SVE. Datetime: 04/07/2025 10:30 Quality: Moderate Resting Tone (Palpate): Relaxed Datetime: 04/07/2025 07:48 Pain Location: Abdomen; Back Pain Relief Measures: Comfort Measures Datetime: 04/07/2025 06:30 Oxygen Method: Room Air Datetime: 04/07/2025 06:00 Cervical Ripening Agents: Cytotec @ Datetime: 04/07/2025 02:53 COMMUNICATION Communication: RN at Bedside Datetime: 04/07/2025 01:19 Vital Sign Comments: BP cuff on top arm. Datetime: 04/06/2025 23:40 Provider Reviewed Strip: Yes Datetime: 04/06/2025 23:00 Pain Goal: 4 MATERNAL ASSESSMENT Level of Consciousness: Alert Headache: Denies Breath Sounds, Left: Clear and Equal Breath Sounds, Right: Clear and Equal Nausea/Vomiting: Denies RUQ Epigastric Pain: Denies PATIENT CARE IV/Blood Work: IV Started ANESTHESIA Anesthesia Plans: Uncertain TEACHING Instructional Method: Verbal Plan of Care: Plan of Care Discussed; Vaginal Delivery; Labor; Induction Unit Routine: [place] to Room; Call Bourgeois; Bed; Visiting Policy; Unit Personnel; Handwashing; Monitoring; IV Pumps Datetime: 04/06/2025 22:51 Membranes Ruptured Date/Time: 04/07/2025 14:15 Amniotic Fluid Odor: Normal
== END 2025-04-09 12:00 | disposition home or self-care (01) | DRG 805 ==
LOC: WFO 21:50 → FBP 21:53
PROVIDERS: ADMIT Nurse Practitioner Obstetrics & Gynecology; ATTEND Nurse Practitioner Obstetrics & Gynecology